=== PATIENT | male | born 1960 | race Caucasian/White ===

== ENCOUNTER 2018-09-30 05:32 | Inpatient (IN) | payer OTHER, SELFPAY ==
[2018-09-18 13:24] VITALS: BMI 26.6
[2018-09-30] VITALS (21 sets, daily range): BP systolic 103–132; BP diastolic 61–86; PULSE 70–102; RESP 6–18; TEMP 36.2–36.8; O2SAT 88–100; BMI 26.6
--- NOTE | 2018-09-30 | DI.RAD.S_ITS ---
PROCEDURE: XR LUMBAR SPINE 2-3V INDICATIONS: L3-4, L4-5 TLIF, L3-S1 POSTERIOR FUSION TECHNIQUE: Multiple intraoperative fluoroscopic views of the lumbar spine were acquired. COMPARISON: None. FINDINGS: Bones: Intraoperative fluoroscopic spot images demonstrate posterior fixation from L3-S1 and anterior fusion and discectomy at L5-S1. IMPRESSION: Intraoperative fluoroscopic images demonstrating fusion at the lumbosacral region. Dictated by: Molly Lozano M.D. on 09/30/2018 at 12:58 Approved by: Molly Lozano M.D. on 09/30/2018 at 12:59
[2018-09-30] MEDS: LACTATED RINGERS 1,000 ML 42 ML IV ×3 (06:43→11:28)
--- NOTE | 2018-09-30 07:41 | PM.PREOP ---
Pre-operative Note Interval Note History & Physical reviewed/Exam performed by Physician: Yes Changes to H&P: No
[2018-09-30] MEDS: CEFAZOLIN 2 GM/100 ML FROZ.PIGGY IV (07:55)
--- NOTE | 2018-09-30 08:25 | SUR.OPER ---
Prone on spine table, head in foam head support, padded chest and pelvic supports, gel pad at knees, lower legs supported by pillows; nipples, genitalia and toes free of pressure, arms secured on foam padded arm boards at <90 degrees abduction. Tape over blanket at thigh secured to table.
[2018-09-30] MEDS: ACETAMINOPHEN IV 1,000 MG/100 ML VIAL 400 MG IV (08:34)
[2018-09-30] MEDS: BUPIVACAINE LIPOSOME 266 MG/20 ML VIAL INJ (08:45)
[2018-09-30] MEDS: BUPIVACAINE 0.25% W/ EPI VIAL 30 ML INJ (08:45)
--- NOTE | 2018-09-30 08:51 | CM.DANOTE ---
DCP: Case received, EMR reviewed. Information obtained from , Annalee, via phone call. White board updated in patient's room, he is now in surgery. DCP template completed with information currently available. Patient is a 58 year old male who admitted early this morning to the care of the surgical team. PCP: Dr. Griffith. Payer: confirmed: [employer]. Patient came to hospital via family vehicle for surgical procedure. Patient is having L3-4, L4-5, L3-S1 fusion. Patient has history of Osteoarthritis, as well as Lumbar Stenosis. Spoke to , Annalee. Her phone number is: [phone], regarding patient's baseline at home. She stated that he is independent, has been going to the gym weekly to work out. She stated that he has had this chronic back pain, that radiates to hip. She stated that when he sits for prolonged time, his left hip gives out at times. She stated that this was mentioned to the surgeon. She stated that he is borrowing his mother's walker and cane, for he does not normally use any DME supplies. Patient has been independent, drives. Patient has had back surgery in 2008 as well. P: DCP to continue to follow. Patient should be able to return home, will depend on how he does here in hospital with physical therapy as well. Jennifer Hoyos RN/[employer]
--- NOTE | 2018-09-30 12:24 | P.OP_ITS ---
Operative Date/Time/Diagnoses Date of procedure: 09/30/18 Time of procedure: 08:00 Pre-op diagnosis: 1. L3-4, L4-5, L5-S1 spinal stenosis. 2. Hx of L5-S1 fusion with pseudoarthrosis. 3. L3-4, L4-5, L5-S1 spondylosis with radiculopathy Post-op diagnosis: same Procedure & Clinicians Procedure: 1. L3-4, L4-5 Postero-lateral and posterior interbody fusion 2. L5-S1 posterolateral fusion 3. L3-4, L4-5 interbody cage placement. 4. L3-4, L4-5, L5-S1 decompressive laminectomy with bilateral facetecomies 5. L3-4, L4-5, L5-S1 Posterior segmental instrumentation 6. Pansey of bone marrow from iliac crest 7. Utilization of microsurgical technique and operating microscope Same procedure as scheduled: Yes Indications: Patient has been having chronic back pain and worsening lumbar radiculopathy. Patient had a history of lumbar fusion with progressively worsening pain weakness to his left leg. Patient failed multiple conservative management with worsening pain weakness and numbness in her lower extremity. Patient has been having difficulty performing activity of daily living. After discussing risks benefits of treatment options, patient elected proceed with surgery. Surgeon: Bill Wadsworth [employer] Professor: Dionna Staton'Brien Click Yes if Unassisted: No Anesthesia Type: General Operative Notes Closure Type: primary Specimen(s): none sent Applied: catheter Estimated Blood Loss (mL): 200 Blood products transfused: none Procedure in detail: Patient was seen in the preoperative area. Risks and benefits of the surgery was discussed with the patient. Informed consent was obtained from the patient and placed in the chart. Surgical site was marked. Patient was taken to the operative room. General anesthesia was administered. Prophylactic antibiotic was given to the patient less than 30 min before the incision was made. Patient was placed into a prone position on the Brent table. Patient's back was then prepped and draped in the sterile fashion. Time- out was performed at this time. Using AP and lateral C-arm imaging the interval between L3-S1 was identified and marked on patient's back. A 3 inch incision 2 in from midline was made on the left side first. The fascia was incised in line with skin incision. Globus MARS retractors was placed inside the incision and docked onto the L3, L4 and L5 lamina. Using microsurgical technique and operating microscope, a L3, L4 and L5 laminectomy and L3-4, L4-5 L5-S1 facetectomy was performed using a Kerrison rongeur. During the process of laminectomy at L5-S1 level the fusion mass was inspected. There was visible motion with stressing the fusion mass indicating a pseudoarthrosis at L5-S1 level. The disc space at L3-4, L4-5 was identified. And a total diskectomy was performed at L3-4, L4-5 level. The endplates were decorticated using a rasp and shaver. The total diskectomy and decortication was performed at L3-4, L4-5 level in order to to accomplish a L3-4 , L4-5 interbody fusion. The local bone from the laminectomy and facetectomy was saved for local bone grafting. After the total diskectomy and decortication was completed, Globus viacell bone graft material was combined with local bone that was harvested earlier. At this time, a separate skin is incision was made over the iliac crest. A Jamshidi needle was inserted into the iliac crest through a separate skin incision. 5 cc of bone marrow aspiration was obtained through the separate skin incision using a Jamshidi needle from the iliac crest. The bone marrow aspiration was combined with local bone and the bio4 bone grafting material. The bone grafting material was placed into the L3-4, L4-5 interbody space along with two cages, one expandable cage at each level. The cages were expanded to their maximum height using the torque limiting screwdriver. At this time a mirror image incision was made on the right side. The fascia was incised in line with the skin incision. Globus MARS retractor was inserted and docked onto the L3-4, L4-5, L5-S1 posterolateral gutter. Using the power drill , posterior-lateral decortication was performed at L3-4, L4-5, L5-S1 level until bleeding cortical bone was identified. The remaining bone grafting material was placed into the L3-4, L4-5 L5-S1 posterior lateral gutter he order to accomplish posterolateral fusion at the L3-4, L4-5 L5-S1 levels. Using the double C-arm technique, pedicle screws were placed into the L3, L4, L5 , S1 pedicles bilaterally. This was done by placing the Jamshidi needle into the pedicles, then placing the guidewires over the Jamshidi needle, and finally placing the cannulated screws over the guidewires bilaterally. After the pedicle screws were placed, 2 titanium rods was locked into the heads of the pedicle screws using locking caps and torque limiting screwdriver. Total 8 pedicles screws were placed. During processes of the screw placement patient's previous placed hardware was visualized. Care was taken to not have any interference between the newly placed screws and the previously placed hardware at L5-S1 level. After all the hardware was placed, and confirmed with AP and lateral C-arm imaging, the wound was then irrigated with sterile normal saline and packed with Ray-Cynthia gauze for 3 min to accomplish hemostasis. After the gauze was removed the deep fascia was closed with #1 Vicryl suture. The subcutaneous layer was closed with 2-0 Vicryl. The skin was closed with skin alessandro. Neuromonitoring was used during the entire case. Patient's signal was stable throughout the entire case. Patient tolerated the procedure well. There were no complications. Complications: none Condition: stable Disposition: PACU Plan for aftercare: Admit to inpatient hospital
[2018-09-30] MEDS: HYDROMORPHONE 2 MG INJ 0.5 MG IV ×3 (12:32→13:11)
[2018-09-30] MEDS: LORazepam 2 MG/ML SYRINGE 0.5 MG IV (12:50)
[2018-09-30] MEDS: hydrOXYzine 50 MG/ML INJ 25 MG IM (13:17)
--- NOTE | 2018-09-30 14:48 | SUR.PHASEI ---
Patient stable to transfer. Dozes intermiitenttly. O2 sats stable on 2/L DIRECTOR ADVERTISING. at bedside. Bedside report given to Daisy Bajwa. patient complained of pain at time of arrival 02/10.
[2018-09-30] MEDS: SODIUM CHLORIDE 0.9% 1,000 ML 100 ML IV (14:50)
--- NOTE | 2018-09-30 15:48 | PC.NURSE ---
Post op: Arrived to room 225 at 1430. Drowsy, but awakens easily to voice/touch. RR 10-12/min. On 2L O2, sats mid to upper 90's. Continuous pulse ox in place. Reported back pain 5/10 was tolerable. Assisted to reposition onto his R side with ice packs on his back. Dressing to mid low back C/D/I. Denies paresthesias. Corley to gravity. IVF per order, site in L wrist WNL. Denies nausea, provided with ice chips and water. SCD's placed on BLE's. Oriented to room and call light, encouraged to make needs known. Call light in reach, bed alarm active.
[2018-09-30] MEDS: CEFAZOLIN 1 GM/50 ML FROZ.PIGGY IV (16:16)
[2018-09-30] MEDS: ACETAMINOPHEN 325 MG TABLET 650 MG PO (16:17)
[2018-09-30] MEDS: HYDROMORPHONE 1 MG INJ 0.5 MG IV ×2 (16:30→21:37)
--- NOTE | 2018-09-30 17:08 | PT.IPTN ---
Current Diagnoses Other spondylosis with radiculopathy, lumbar region (09/30/18) Spinal stenosis, lumbar region with neurogenic claudication (09/30/18) Surgery Performed Operation Date: 09/30/18 07:45 Actual Procedures p L3-4,L4-5 TLIF, L3-S1 PSF w/Instru, L2-3 Hemilaminectomy - Bill Wadsworth MD Physical Therapy Treatment Note M3 PT-IP Subjective Start: 09/30/18 17:05 Freq: NEEDED Status: Active Protocol: Document 09/30/18 16:50 (Rec: 09/30/18 17:07 [id number]) Subjective Physical Therapy Visit Type Type Administrative Note Visit Start Time 16:50 Notes RN recommended attempt PT again tomorrow due to LBP -. Pt states I am very tired at this point and my back is bothering me.
[2018-09-30] MEDS: DOCUSATE 100 MG CAPSULE PO (20:03)
[2018-09-30] MEDS: SENNOSIDES 8.6 MG TABLET 17.2 MG PO (20:03)
[2018-09-30] MEDS: hydrOXYzine pamoate 25 MG CAPSULE PO (20:03)
[2018-09-30] MEDS: OXYCODONE IR 5 MG TABLET 10 MG PO (20:03)
[2018-10-01 00:30] VITALS: BP 118/73; PULSE 82; RESP 17; TEMP 36.6; O2SAT 100
[2018-10-01] MEDS: SODIUM CHLORIDE 0.9% 1,000 ML 100 ML IV (00:39)
[2018-10-01] MEDS: CEFAZOLIN 1 GM/50 ML FROZ.PIGGY IV (00:39)
[2018-10-01] MEDS: OXYCODONE IR 5 MG TABLET 10 MG PO ×3 (00:43→06:35)
[2018-10-01 04:00] VITALS: BP 117/65; PULSE 76; RESP 17; O2SAT 96
[2018-10-01] MEDS: HYDROMORPHONE 1 MG INJ 0.5 MG IV (04:21)
[2018-10-01 05:21] LABS: Hemoglobin 13.5 g/dL (13.5-17.5)
[2018-10-01 06:10] VITALS: TEMP 37.1
[2018-10-01] MEDS: hydrOXYzine pamoate 25 MG CAPSULE PO ×4 (06:44→22:22)
[2018-10-01 07:50] VITALS: BP 104/72; PULSE 98; RESP 18; TEMP 37; O2SAT 98
--- NOTE | 2018-10-01 08:00 | PM.PNPO.1 ---
Subjective Date Patient Seen: 10/01/18 Time Patient Seen: 08:00 Interval history: Hospital day 2, postop day 1 following L3-4, L4-5 TLIF and cage, L5-S1 posterior fusion and L3 through S1 bilateral posterior instrumented fusion by Dr. Wadsworth. Patient noted pain off and on throughout the night. He was taking oxycodone 10 mg which is not giving him enough relief. Did receive 2 doses of IV Dilaudid which helped. Also Vistaril seem to help a lot. He has not been out of bed yet. No physical therapy yet. Corley catheter in place. Exam Vital Signs (past 8 hours): - 10/01/18 00:30 10/01/18 04:00 10/01/18 06:10 Temperature 97.8 F 98.8 F Pulse Rate 82 76 Respiratory Rate 17 17 Blood Pressure 118/73 117/65 Pulse Oximetry 100 96 10/01/18 07:50 Temperature 98.6 F Pulse Rate 98 H Respiratory Rate 18 Blood Pressure 104/72 Pulse Oximetry 98 Oxygen Delivery Method Nasal Cannula Oxygen Flow Rate 1 Narrative Exam Narrative: Alert, oriented no acute distress right lying in bed. Back. Dressing to lumbar area is dry without drainage or inflammation. Legs. No calf pain or swelling. Pulses symmetrical. Good sensation to touch to the lower legs symmetrical. Good strength on foot dorsiflexion plantar flexion. Objective Labs Result Diagrams: 10/01/18 04:47 Labs: Laboratory Results - last 24 hr 10/01/18 04:47 Hgb 13.5 Hct 40.0 L Assessment & Plan Post-op Postoperative Procedures Operation Date: 09/30/18 07:45 Actual Procedures Side Surgeon p L3-4,L4-5 TLIF, L3-S1 PSF w/Instru, L2-3 Hemilaminectomy Bill Wadsworth MD Plan: Will add p.o. Dilaudid for better pain control. Patient work with physical therapy today. DC Corley catheter once he is more active. I anticipate discharge home in the next 1-2 days depending on his progress and pain control. Quality VTE Deep Vein Thrombosis/Pulmonary Embolism Present on Admission: No
[2018-10-01] MEDS: DOCUSATE 100 MG CAPSULE PO ×2 (08:49→22:17)
[2018-10-01] MEDS: HYDROMORPHONE 2 MG TABLET 4 MG PO ×4 (08:50→22:17)
--- NOTE | 2018-10-01 08:56 | CM.DPC ---
DCP Cont: Met briefly with patient, was laying on his right side. Had his lumbar surgery yesterday. He stated that he has had back problems since he was young. He stated, he had a lot of pain last night, not as bad this morning. Received report from Randolph Zacarias P.Davidson/ortho. Stated that he anticipates that he will be here until possibly . He stated that he switched him to oral Dilaudid today, versus IV. He also will be working with P.T. today. P: DCP to follow closely. Should be able to return home when medically stable and cleared through P.T. Jennifer Hoyos RN/[employer]
[2018-10-01] MEDS: HYDROMORPHONE 0.5 MG INJ IV ×2 (09:05→18:22)
--- NOTE | 2018-10-01 10:33 | PT.IIE ---
Current Diagnoses Other spondylosis with radiculopathy, lumbar region (09/30/18) Spinal stenosis, lumbar region with neurogenic claudication (09/30/18) Surgery Performed Operation Date: 09/30/18 07:45 Actual Procedures p L3-4,L4-5 TLIF, L3-S1 PSF w/Instru, L2-3 Hemilaminectomy - Bill Wadsworth MD Surgical History (Last Updated 09/18/18 @ 14:22 by Shahla Farias RN) History of arthroscopy of both shoulders (Acute) Hx of elbow surgery (Acute) Hx of eye surgery (Acute) Hx of hemorrhoidectomy (Acute 09/03/14) Hx of lumbar discectomy (Acute ~2009) Hx of tonsillectomy (Acute) S/P cervical spinal fusion (Acute ~1988) S/P cervical spinal fusion (Acute ~2006) Medical History (Last Updated 09/18/18 @ 14:22 by Shahla Farias RN) Chronic back pain (Acute) Constipation (Acute) Ganglion cyst (Acute) Melanoma in situ of back (Acute ~2014) Neck pain (Acute) Normal colonoscopy (Acute 09/03/07) Pneumonia (Acute) Sciatica (Acute) Physical Therapy Inpatient Evaluation/Re-Eval M1 PT/OT-IP Prior Functional Status Start: 09/30/18 17:05 Freq: NEEDED Status: Active Protocol: Document 10/01/18 10:33 AB (Rec: 10/01/18 13:04 AB [id number]) Medical Review Prior Functional Status Medical History Reviewed Yes Communication able to make needs known Mobility and Gait stated that he is independent with all mobilities and ambulation without AD Social History Household Members spouse Living Arrangements House Number of Floors (Floors) Two Floors Number of Stairs To Enter/Railing? 3 steps to enter with R rail ascending pt will stay on main level of the house Home Environment Standard Height Toilet Walk in Shower Home Equipment Front Wheel Walker Quad Cane M2 PT-IP Current Condition Start: 09/30/18 17:05 Freq: NEEDED Status: Active Protocol: Document 10/01/18 10:33 AB (Rec: 10/01/18 13:04 AB [id number]) Physical Therapy Current Condition Current Condition Evaluation Date 10/01/18 Treatment Diagnosis s/p L3-S1 fusion/lami; difficulties in walking Onset Date 09/30/18 Precautions Lumbar Precautions Log Roll No Twisting Limit Bending Lifting Restriction of 10 lbs Gait Belt above Incisional Area M3 PT-IP Subjective Start: 09/30/18 17:05 Freq: NEEDED Status: Active Protocol: Document 10/01/18 10:33 AB (Rec: 10/01/18 13:04 AB [id number]) Subjective Physical Therapy Visit Type Type Initial Evaluation Visit Start Time 10:33 Visit Stop Time 11:13 Total Visit Minutes 40 Number of SCREENER OPERATOR Visits 0 Physical Therapy Visit Comments Patient Comments pt agreed to get up Therapy Pain Assessment Pain When Pain Assessed At Rest Pain Present Pain Present Pain Reported Location Back Intensity 3 Scale Used Numeric (1 - 10) Pain Management Techniques Apply Cold Re-positioning Timing of Activity with Medications M4 PT-IP Mobility and Gait Start: 09/30/18 17:05 Freq: NEEDED Status: Active Protocol: Document 10/01/18 10:33 AB (Rec: 10/01/18 13:04 AB [id number]) PT-Bed Mobility Assessment Sit to Supine Sit to Supine Moderate Assistance Scooting Scooting to Edge of Bed Standby Assistance PT-Transfer Assessment Sit to and From Stand Sit to and from Stand Moderate Assistance 1 Person Assistance Use of Upper Extremities Equipment Transfer Assistive Device Gait Belt Front Wheeled Walker Orthotic/Prosthetic Devices or Brace: No Transfers Transfer Destination Chair Transfer Technique pt ambulated to the the chair using FWW Transfer Ability Level of Assist Moderate Assistance 1 Person Assistance Use of Upper Extremities Gait Assessment Gait Gait Assistance Required: Minimum Assistance Moderate Assistance Distance (Feet) 50 Able to Maintain Weight Bearing Status Yes During Gait Assistive Devices Assistive Device Gait Belt Front Wheeled Walker Orthotic/Prosthetic Devices or Brace: No Gait Deviations General Gait Pattern Antalgic Decreased Stride Length Decreased Feet Clearance Lateral Trunk Lean Factors Limiting Gait Function Factors Limiting Gait Function Decreased Activity Tolerance Decreased Strength Difficulty Following Directions Limited Range of Motion Pain Poor Balance Poor Safety Awareness Comments Gait Comments pt ambulated in hallway using FWW min to mod A and max cues for upright posture. completed ~ 50 ft. pt presents with increase bilateral hip/knee flexion and increase ankle PF . pt stated that prior to surgery, he spends most of his time seated on a chair for pain relief and psoas muscles are tight. PT-Balance Assessment Sitting Balance and Reactions Static Sitting Balance Ability Good Dynamic Sitting Balance Ability Good Standing Balance and Reactions Static Standing Balance Ability Fair Dynamic Standing Balance Ability Fair Device Used FWw M5 PT-IP Objective Assessments Start: 09/30/18 17:05 Freq: NEEDED Status: Active Protocol: Document 10/01/18 10:33 AB (Rec: 10/01/18 13:04 AB [id number]) Orientation Orientation/Cognition Level of Alertness Alert Orientation Name Age Birthday Month Date Year Day of Week Place Situation Safety Awareness Decreased Safety Awareness Comments pt can be impulsive Gross Range of Motion Lower Extremity ROM Impairments bilateral hip flexors, knee extensors and PF tightness Strength Lower Extremity Strength Assessment Bilaterally Impaired Hip 3+/5 Knee 4-/5 Coordination Assessment Gross Coordination Gross Coordination WNL Muscle Tone Muscle Tone WNL Yes M6 PT-IP Treatment Start: 09/30/18 17:05 Freq: NEEDED Status: Active Protocol: Document 10/01/18 10:33 AB (Rec: 10/01/18 13:04 AB [id number]) Physical Therapy Treatment Education Education Provided Precautions Weight Bearing Status Post-Op Packet Safety M7 PT-IP Assessment and Plan Start: 09/30/18 17:05 Freq: NEEDED Status: Active Protocol: Document 10/01/18 10:33 AB (Rec: 10/01/18 13:04 AB [id number]) PT Summary Assessment and Plan Potential Rehabilitation Potential Good Status of Condition at Evaluation Evolving Summary Impairments Pain ROM Strength Balance Coordination Sensation Tone Cognition Bed Mobility Transfers Gait Activity Tolerance Assessment Summary pt requiring mod A with mobility. pt plans to go home with spouse to assist him. caregiver training will be completed when appropriate and will complete stair climbing prior to d/c and if able to complete safely, may go home with assist. Goals Bed Mobility Goal Standby Assistance Transfer Goal Standby Assistance Front Wheeled Walker Gait Goal Standby Assistance Front Wheel Walker Gait Distance 200 Other Goals up/down 3 steps with R rail SBA Days to Meet Goals 5 Frequency of Treatment Frequency Of Treatment Twice a Day Treatment Plan Physical Therapy Treatment Plan Bed Mobility Training Transfer Training Gait Training Therapeutic Exercise Balance Retraining Post Op Education Discharge Planning Hot or Cold Pack Neuromuscular Re-ed Coordination Retraining Manual Therapy Other Recommendations and Next Treatment bed mobility log roll, Focus caregiver training, ambulation , stair climbing Recommendations To Nursing Amount of Assist Needed 1 Person Assist Discharge Recommendations PT Discharge Recommendations Home with Assistance
[2018-10-01] MEDS: ACETAMINOPHEN 325 MG TABLET 650 MG PO ×2 (10:50→18:22)
[2018-10-01] MEDS: MAGNESIUM HYDROXIDE 30 ML UDC PO (12:06)
[2018-10-01] MEDS: MAG HYDROX/ALUM/SIMETH 30 ML UDC PO (12:36)
--- NOTE | 2018-10-01 15:15 | OT.IP.TRT ---
Current Diagnoses Other spondylosis with radiculopathy, lumbar region (09/30/18) Spinal stenosis, lumbar region with neurogenic claudication (09/30/18) Surgery Performed Operation Date: 09/30/18 07:45 Actual Procedures p L3-4,L4-5 TLIF, L3-S1 PSF w/Instru, L2-3 Hemilaminectomy - Bill Wadsworth MD Occupational Therapy Treatment Note M3 OT- IP Subjective and Pain Start: 10/01/18 16:28 Freq: Status: Active Protocol: Document 10/01/18 15:15 PJM (Rec: 10/01/18 16:29 PJM [id number]) OT- Subjective Occupational Therapy Visit Type Type Administrative Note Visit Start Time 15:15 Notes OT referral received. Pt declined evaluation at this time due to abdominal discomfort. Will attempt again in AM. No charge.
[2018-10-01 15:40] VITALS: BP 100/76; PULSE 88; RESP 16; TEMP 37; O2SAT 98
--- NOTE | 2018-10-01 15:44 | PT.IPTN ---
Current Diagnoses Other spondylosis with radiculopathy, lumbar region (09/30/18) Spinal stenosis, lumbar region with neurogenic claudication (09/30/18) Surgery Performed Operation Date: 09/30/18 07:45 Actual Procedures p L3-4,L4-5 TLIF, L3-S1 PSF w/Instru, L2-3 Hemilaminectomy - Bill Wadsworth MD Physical Therapy Treatment Note M2 PT-IP Current Condition Start: 09/30/18 17:05 Freq: NEEDED Status: Active Protocol: Document 10/01/18 10:33 AB (Rec: 10/01/18 13:04 AB [id number]) Physical Therapy Current Condition Current Condition Evaluation Date 10/01/18 Treatment Diagnosis s/p L3-S1 fusion/lami; difficulties in walking Onset Date 09/30/18 Precautions Lumbar Precautions Log Roll No Twisting Limit Bending Lifting Restriction of 10 lbs Gait Belt above Incisional Area M3 PT-IP Subjective Start: 09/30/18 17:05 Freq: NEEDED Status: Active Protocol: Document 10/01/18 14:10 CLB (Rec: 10/01/18 15:43 CLB [id number]) Subjective Physical Therapy Visit Type Type Treatment Note Visit Start Time 14:10 Visit Stop Time 14:35 Total Visit Minutes 25 Number of GRADES 1 THRU 6 HOME TEACHER Visits 1 Physical Therapy Visit Comments Patient Comments Pt wanting to get up and ambulate hoping to decrease stomach pain. Therapy Pain Assessment Pain When Pain Assessed During Mobility Pain Present Pain Present Pain Reported Location Back Intensity 5 Scale Used Numeric (1 - 10) Pain Management Techniques Apply Cold Re-positioning Timing of Activity with Medications M4 PT-IP Mobility and Gait Start: 09/30/18 17:05 Freq: NEEDED Status: Active Protocol: Document 10/01/18 14:10 CLB (Rec: 10/01/18 15:43 CLB [id number]) PT-Transfer Assessment Sit to and From Stand Sit to and from Stand Minimal Assistance 1 Person Assistance Use of Upper Extremities Equipment Transfer Assistive Device Gait Belt Front Wheeled Walker Orthotic/Prosthetic Devices or Brace: No Transfers Transfer Destination Chair Transfer Technique Stand Step Pivot Transfer Ability Level of Assist Minimal Assistance 1 Person Assistance Use of Upper Extremities Gait Assessment Gait Gait Assistance Required: Contact Guard Assist 1 Person Assist Distance (Feet) 100 Able to Maintain Weight Bearing Status Yes During Gait Assistive Devices Assistive Device Gait Belt Front Wheeled Walker Orthotic/Prosthetic Devices or Brace: No Gait Deviations General Gait Pattern Antalgic Decreased Stride Length Decreased Feet Clearance Lateral Trunk Lean Comments Gait Comments Pt increased ambulation requiring CGA with standing rest breaks. M5 PT-IP Objective Assessments Start: 09/30/18 17:05 Freq: NEEDED Status: Active Protocol: Document 10/01/18 10:33 AB (Rec: 10/01/18 13:04 AB [id number]) Orientation Orientation/Cognition Level of Alertness Alert Orientation Name Age Birthday Month Date Year Day of Week Place Situation Safety Awareness Decreased Safety Awareness Comments pt can be impulsive Gross Range of Motion Lower Extremity ROM Impairments bilateral hip flexors, knee extensors and PF tightness Strength Lower Extremity Strength Assessment Bilaterally Impaired Hip 3+/5 Knee 4-/5 Coordination Assessment Gross Coordination Gross Coordination WNL Muscle Tone Muscle Tone WNL Yes M6 PT-IP Treatment Start: 09/30/18 17:05 Freq: NEEDED Status: Active Protocol: Document 10/01/18 10:33 AB (Rec: 10/01/18 13:04 AB [id number]) Physical Therapy Treatment Education Education Provided Precautions Weight Bearing Status Post-Op Packet Safety M7 PT-IP Assessment and Plan Start: 09/30/18 17:05 Freq: NEEDED Status: Active Protocol: Document 10/01/18 14:10 CLB (Rec: 10/01/18 15:43 CLB [id number]) PT Summary Assessment and Plan Summary Impairments Pain ROM Strength Balance Coordination Sensation Tone Cognition Bed Mobility Transfers Gait Activity Tolerance Assessment Summary Pt increased gait distance requiring standing rest breaks . Pt continues to need cues for posture during ambulation. Pt improved with sit-stand requiring Min A and cues for proper hand placement for safety. and daughter present for tx session. Goals Bed Mobility Goal Standby Assistance Transfer Goal Standby Assistance Front Wheeled Walker Gait Goal Standby Assistance Front Wheel Walker Gait Distance 200 Other Goals up/down 3 steps with R rail SBA Days to Meet Goals 5 Frequency of Treatment Frequency Of Treatment Twice a Day Treatment Plan Physical Therapy Treatment Plan Bed Mobility Training Transfer Training Gait Training Therapeutic Exercise Balance Retraining Post Op Education Discharge Planning Hot or Cold Pack Neuromuscular Re-ed Coordination Retraining Manual Therapy Recommendations To Nursing Amount of Assist Needed 1 Person Assist Discharge Recommendations PT Discharge Recommendations Home with Assistance
--- NOTE | 2018-10-01 15:46 | PT.IPTN ---
Current Diagnoses Other spondylosis with radiculopathy, lumbar region (09/30/18) Spinal stenosis, lumbar region with neurogenic claudication (09/30/18) Surgery Performed Operation Date: 09/30/18 07:45 Actual Procedures p L3-4,L4-5 TLIF, L3-S1 PSF w/Instru, L2-3 Hemilaminectomy - Bill Wadsworth MD Physical Therapy Treatment Note M2 PT-IP Current Condition Start: 09/30/18 17:05 Freq: NEEDED Status: Active Protocol: Document 10/01/18 10:33 AB (Rec: 10/01/18 13:04 AB [id number]) Physical Therapy Current Condition Current Condition Evaluation Date 10/01/18 Treatment Diagnosis s/p L3-S1 fusion/lami; difficulties in walking Onset Date 09/30/18 Precautions Lumbar Precautions Log Roll No Twisting Limit Bending Lifting Restriction of 10 lbs Gait Belt above Incisional Area M3 PT-IP Subjective Start: 09/30/18 17:05 Freq: NEEDED Status: Active Protocol: Document 10/01/18 14:10 CLB (Rec: 10/01/18 15:43 CLB [id number]) Subjective Physical Therapy Visit Type Type Treatment Note Visit Start Time 14:10 Visit Stop Time 14:35 Total Visit Minutes 25 Number of FOOD RUNNER Visits 1 Physical Therapy Visit Comments Patient Comments Pt wanting to get up and ambulate hoping to decrease stomach pain. Therapy Pain Assessment Pain When Pain Assessed During Mobility Pain Present Pain Present Pain Reported Location Back Intensity 5 Scale Used Numeric (1 - 10) Pain Management Techniques Apply Cold Re-positioning Timing of Activity with Medications M4 PT-IP Mobility and Gait Start: 09/30/18 17:05 Freq: NEEDED Status: Active Protocol: Document 10/01/18 14:10 CLB (Rec: 10/01/18 15:43 CLB [id number]) PT-Transfer Assessment Sit to and From Stand Sit to and from Stand Minimal Assistance 1 Person Assistance Use of Upper Extremities Equipment Transfer Assistive Device Gait Belt Front Wheeled Walker Orthotic/Prosthetic Devices or Brace: No Transfers Transfer Destination Chair Transfer Technique Stand Step Pivot Transfer Ability Level of Assist Minimal Assistance 1 Person Assistance Use of Upper Extremities Gait Assessment Gait Gait Assistance Required: Contact Guard Assist 1 Person Assist Distance (Feet) 100 Able to Maintain Weight Bearing Status Yes During Gait Assistive Devices Assistive Device Gait Belt Front Wheeled Walker Orthotic/Prosthetic Devices or Brace: No Gait Deviations General Gait Pattern Antalgic Decreased Stride Length Decreased Feet Clearance Lateral Trunk Lean Comments Gait Comments Pt increased ambulation requiring CGA with standing rest breaks. M5 PT-IP Objective Assessments Start: 09/30/18 17:05 Freq: NEEDED Status: Active Protocol: Document 10/01/18 10:33 AB (Rec: 10/01/18 13:04 AB [id number]) Orientation Orientation/Cognition Level of Alertness Alert Orientation Name Age Birthday Month Date Year Day of Week Place Situation Safety Awareness Decreased Safety Awareness Comments pt can be impulsive Gross Range of Motion Lower Extremity ROM Impairments bilateral hip flexors, knee extensors and PF tightness Strength Lower Extremity Strength Assessment Bilaterally Impaired Hip 3+/5 Knee 4-/5 Coordination Assessment Gross Coordination Gross Coordination WNL Muscle Tone Muscle Tone WNL Yes M6 PT-IP Treatment Start: 09/30/18 17:05 Freq: NEEDED Status: Active Protocol: Document 10/01/18 10:33 AB (Rec: 10/01/18 13:04 AB [id number]) Physical Therapy Treatment Education Education Provided Precautions Weight Bearing Status Post-Op Packet Safety M7 PT-IP Assessment and Plan Start: 09/30/18 17:05 Freq: NEEDED Status: Active Protocol: Document 10/01/18 14:10 CLB (Rec: 10/01/18 15:43 CLB [id number]) PT Summary Assessment and Plan Summary Impairments Pain ROM Strength Balance Coordination Sensation Tone Cognition Bed Mobility Transfers Gait Activity Tolerance Assessment Summary Pt increased gait distance requiring standing rest breaks . Pt continues to need cues for posture during ambulation. Pt improved with sit-stand requiring Min A and cues for proper hand placement for safety. and daughter present for tx session. Goals Bed Mobility Goal Standby Assistance Transfer Goal Standby Assistance Front Wheeled Walker Gait Goal Standby Assistance Front Wheel Walker Gait Distance 200 Other Goals up/down 3 steps with R rail SBA Days to Meet Goals 5 Frequency of Treatment Frequency Of Treatment Twice a Day Treatment Plan Physical Therapy Treatment Plan Bed Mobility Training Transfer Training Gait Training Therapeutic Exercise Balance Retraining Post Op Education Discharge Planning Hot or Cold Pack Neuromuscular Re-ed Coordination Retraining Manual Therapy Recommendations To Nursing Amount of Assist Needed 1 Person Assist Discharge Recommendations PT Discharge Recommendations Home with Assistance
--- NOTE | 2018-10-01 19:45 | PC.NURSE ---
Addendum entered by Shalini Lackey R.N. 10/01/18 19:49: Changed bed from Hill-Rom to [place] bed and added overhead trapeze. Original Note: malia note pt reported 5-6/10 pain. Medicated with po dilaudid. Pt having much abd discomfort, bloating, belching, some flatus. Pt ambulated in halls with FWW and one person assist. Pain now 9/10. Medicated with IV dilaudid and po tylenol.
[2018-10-01 20:39] VITALS: BP 115/71; PULSE 76; RESP 18; TEMP 37.2
[2018-10-01] MEDS: SENNOSIDES 8.6 MG TABLET 17.2 MG PO (22:17)
[2018-10-02 00:05] VITALS: BP 108/69; PULSE 77; RESP 18; TEMP 36.9; O2SAT 96
[2018-10-02] MEDS: HYDROMORPHONE 0.5 MG INJ IV ×3 (00:19→08:48)
[2018-10-02] MEDS: HYDROMORPHONE 2 MG TABLET 4 MG PO ×4 (02:50→22:52)
[2018-10-02] MEDS: hydrOXYzine pamoate 25 MG CAPSULE PO ×2 (02:50→06:48)
[2018-10-02 04:13] VITALS: BP 106/60; PULSE 84; RESP 19; TEMP 37.1; O2SAT 97
--- NOTE | 2018-10-02 04:27 | PC.NURSE ---
Shift note: Pt reports still having difficulty managing pain with current dosing regimen of 4mg Dilaudid PO and requiring 0.5mg Dilaudid IV for break through pain per MAR. Pt reports that he is unable to sleep and is concerned that he is still requiring the IV Dilaudid to be comfortable. Educated pt on post op course and encouraged pt to speak to surgeon regarding pain management concerns. is rooming in and assisting pt with urination needs, she reports U/O to BAR ATTENDANT for documentation.
[2018-10-02 07:38] VITALS: BP 124/76; PULSE 82; RESP 18; TEMP 37.7; O2SAT 96
--- NOTE | 2018-10-02 08:10 | P.PN_ITS ---
Subjective Date Patient Seen: 10/02/18 Time Patient Seen: 08:06 Interval history: Hospital day 3, postop day 2 following L3-4 through L5-S1 TLIF , cage, posterior screw fixation. Patient continues having pain control issue. He has been taking Dilaudid 4 mg p.o. which works better but still having use occasional IV Dilaudid. The patient did work with physical therapy yesterday. He did ambulate in the [facility] but had increased pain at the end of this session. Voiding well. Exam Vital Signs (past 8 hours): - 10/02/18 04:13 Temperature 98.7 F Pulse Rate 84 Respiratory Rate 19 Blood Pressure 106/60 Pulse Oximetry 97 Oxygen Delivery Method Room Air Oxygen Flow Rate 0 Narrative Exam Narrative: Alert, oriented no acute distress sitting in chair. Back. Dressing to lumbar area is dry without drainage or inflammation. Legs. No calf pain or swelling. Pulses symmetrical. Good sensation to touch to the lower leg symmetrical. Good strength on ankle dorsiflexion plantar flexion. Objective Labs Result Diagrams: 10/01/18 04:47 Assessment & Plan Post-op Postoperative Procedures Operation Date: 09/30/18 07:45 Actual Procedures Side Surgeon p L3-4,L4-5 TLIF, L3-S1 PSF w/Instru, L2-3 Hemilaminectomy Bill Wadsworth MD Plan: Will add dexamethasone 10 mg IV now and then dexamethasone 4 mg p.o. q.8h. Toradol 30 mg IV q.6h as needed to see if this gives him better pain control. Will change lumbar dressing to CovRsite. Patient will work with PT more today. Anticipate discharge to home in the next 1-2 days if stable. Quality VTE Deep Vein Thrombosis/Pulmonary Embolism Present on Admission: No
[2018-10-02] MEDS: DEXAMETHASONE 10 MG/ML VIAL IV (08:46)
[2018-10-02] MEDS: KETOROLAC 30 MG/ML VIAL IV (08:46)
[2018-10-02] MEDS: DOCUSATE 100 MG CAPSULE PO (08:49)
--- NOTE | 2018-10-02 09:30 | PT.IPTN ---
Current Diagnoses Other spondylosis with radiculopathy, lumbar region (09/30/18) Spinal stenosis, lumbar region with neurogenic claudication (09/30/18) Surgery Performed Operation Date: 09/30/18 07:45 Actual Procedures p L3-4,L4-5 TLIF, L3-S1 PSF w/Instru, L2-3 Hemilaminectomy - Bill Wadsworth MD Physical Therapy Treatment Note M2 PT-IP Current Condition Start: 09/30/18 17:05 Freq: NEEDED Status: Active Protocol: Document 10/01/18 10:33 AB (Rec: 10/01/18 13:04 AB [id number]) Physical Therapy Current Condition Current Condition Evaluation Date 10/01/18 Treatment Diagnosis s/p L3-S1 fusion/lami; difficulties in walking Onset Date 09/30/18 Precautions Lumbar Precautions Log Roll No Twisting Limit Bending Lifting Restriction of 10 lbs Gait Belt above Incisional Area M3 PT-IP Subjective Start: 09/30/18 17:05 Freq: NEEDED Status: Active Protocol: Document 10/02/18 09:30 GGD (Rec: 10/02/18 11:56 GGD [id number]) Subjective Physical Therapy Visit Type Type Treatment Note Visit Start Time 09:00 Visit Stop Time 09:30 Total Visit Minutes 30 Number of METAL FITTER Visits 2 Physical Therapy Visit Comments Patient Comments Pt states he would like to walk. Therapy Pain Assessment Pain When Pain Assessed During Mobility Pain Present Pain Present Pain Reported M4 PT-IP Mobility and Gait Start: 09/30/18 17:05 Freq: NEEDED Status: Active Protocol: Document 10/02/18 09:30 GGD (Rec: 10/02/18 11:56 GGD [id number]) PT-Bed Mobility Assessment Sit to Supine Sit to Supine Contact Guard Assistance Bedrails Scooting Scooting to Edge of Bed Standby Assistance PT-Transfer Assessment Sit to and From Stand Sit to and from Stand Contact Guard Assistance 1 Person Assistance Use of Upper Extremities Equipment Transfer Assistive Device Gait Belt Front Wheeled Walker Orthotic/Prosthetic Devices or Brace: No Transfers Transfer Destination Bed Transfer Ability Level of Assist Minimal Assistance Use of Upper Extremities Gait Assessment Gait Gait Assistance Required: Contact Guard Assist 1 Person Assist Distance (Feet) 140 Able to Maintain Weight Bearing Status Yes During Gait Assistive Devices Assistive Device Gait Belt Front Wheeled Walker Orthotic/Prosthetic Devices or Brace: No Gait Deviations General Gait Pattern Antalgic Decreased Stride Length Decreased Feet Clearance Lateral Trunk Lean M5 PT-IP Objective Assessments Start: 09/30/18 17:05 Freq: NEEDED Status: Active Protocol: Document 10/01/18 10:33 AB (Rec: 10/01/18 13:04 AB [id number]) Orientation Orientation/Cognition Level of Alertness Alert Orientation Name Age Birthday Month Date Year Day of Week Place Situation Safety Awareness Decreased Safety Awareness Comments pt can be impulsive Gross Range of Motion Lower Extremity ROM Impairments bilateral hip flexors, knee extensors and PF tightness Strength Lower Extremity Strength Assessment Bilaterally Impaired Hip 3+/5 Knee 4-/5 Coordination Assessment Gross Coordination Gross Coordination WNL Muscle Tone Muscle Tone WNL Yes M6 PT-IP Treatment Start: 09/30/18 17:05 Freq: NEEDED Status: Active Protocol: Document 10/02/18 09:30 GGD (Rec: 10/02/18 11:56 GGD [id number]) Physical Therapy Treatment Education Education Provided Precautions M7 PT-IP Assessment and Plan Start: 09/30/18 17:05 Freq: NEEDED Status: Active Protocol: Document 10/02/18 09:30 GGD (Rec: 10/02/18 11:56 GGD [id number]) PT Summary Assessment and Plan Summary Assessment Summary Pt improving with mobility. He needed less assist with bed mobility and sit to stand. He did have heavy use of UE on FWW with ambulation. Need to asses stairs, before D/C. Frequency of Treatment Frequency Of Treatment Twice a Day Treatment Plan Physical Therapy Treatment Plan Bed Mobility Training Transfer Training Gait Training Therapeutic Exercise Balance Retraining Post Op Education Discharge Planning Hot or Cold Pack Neuromuscular Re-ed Coordination Retraining Manual Therapy Recommendations To Nursing Amount of Assist Needed 1 Person Assist Discharge Recommendations PT Discharge Recommendations Home with Assistance
--- NOTE | 2018-10-02 11:43 | OT.IP.EVAL ---
Current Diagnoses Other spondylosis with radiculopathy, lumbar region (09/30/18) Spinal stenosis, lumbar region with neurogenic claudication (09/30/18) Surgery Performed Operation Date: 09/30/18 07:45 Actual Procedures p L3-4,L4-5 TLIF, L3-S1 PSF w/Instru, L2-3 Hemilaminectomy - Bill Wadsworth MD Past Medical History (Last Updated 09/18/18 @ 14:22 by Shahla Farias RN) Chronic back pain (Acute) Constipation (Acute) Ganglion cyst (Acute) Melanoma in situ of back (Acute ~2014) Neck pain (Acute) Normal colonoscopy (Acute 09/03/07) Pneumonia (Acute) Sciatica (Acute) Surgical History (Last Updated 09/18/18 @ 14:22 by Shahla Farias RN) History of arthroscopy of both shoulders (Acute) Hx of elbow surgery (Acute) Hx of eye surgery (Acute) Hx of hemorrhoidectomy (Acute 09/03/14) Hx of lumbar discectomy (Acute ~2009) Hx of tonsillectomy (Acute) S/P cervical spinal fusion (Acute ~1988) S/P cervical spinal fusion (Acute ~2006) Occupational Therapy Inpatient Evaluation/Re-Eval M1 PT/OT-IP Prior Functional Status Start: 09/30/18 17:05 Freq: NEEDED Status: Active Protocol: Document 10/02/18 11:43 BREE (Rec: 10/02/18 16:06 BREE [id number]) Medical Review Prior Functional Status Medical History Reviewed Yes Diet/Fluid Consistency Regular Communication WNL Mobility and Gait Pt stated that he is independent with all mobilities and ambulation without AD. Activities of Daily Living and IADL's Pt stated he occasionally needed assistance with socks and shoes when back pain increased; otherwise he ws independent with all self care and light IADLS. 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 Pt's adult daughter lives with them, works partner manager and can assist also. Social History Household Members spouse children Living Arrangements House Number of Floors (Floors) Two Floors Number of Stairs To Enter/Railing? 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 M2 OT-IP Current Condition Start: 10/01/18 16:28 Freq: Status: Active Protocol: Document 10/02/18 11:43 PJM (Rec: 10/02/18 16:06 PJ [id number]) Occupational Therapy Current Condition Current Condition Evaluation Date 10/02/18 Treatment Diagnosis decreased self care, functional mobility s/p L3-L5 PLIF. Post Operative Precautions Lumbar Precautions Log Roll No Twisting Limit Bending Lifting Restriction of 10 lbs Gait Belt above Incisional Area M3 OT- IP Subjective and Pain Start: 10/01/18 16:28 Freq: Status: Active Protocol: Document 10/02/18 11:43 PJM (Rec: 10/02/18 16:06 PJM [id number]) OT- Subjective Occupational Therapy Visit Type Type Initial Evaluation Visit Start Time 11:00 Visit Stop Time 11:43 Total Visit Minutes 43 Notes Pt's here for education this session. Occupational Therapy Visit Comments Patient Comments I am feeling much better today. Patient/Caregiver Goals to go home tomorrow and have less pain during daily activities OT Pain Assessment Pain When Pain Assessed After Treatment Pain Present Pain Present Pain Reported Location Back Intensity 2 Scale Used Numeric (1 - 10) Description Aching Acute Pain Behaviors Guarding Management Techniques Apply Cold Distraction Re-positioning Timing of Activity with Medications M4 OT- IP ADL's Start: 10/01/18 16:28 Freq: Status: Active Protocol: Document 10/02/18 11:43 PJM (Rec: 10/02/18 16:06 PJ [id number]) OT [id number] General Evaluation Self-Feeding Ability Independent OT ADL-Grooming General Evaluation Grooming Ability Independent Comments OT Grooming Comments standing at sink after education re: body mechanics OT ADL-Oral Care General Eval Oral Care Ability Independent Comments Oral Care Comments standing at sink after education re: body mechanics OT ADL-Dressing General Eval Upper Body Dressing Ability Independent Lower Body Dressing Ability Standby Assistance Areas Needing Assistance Pull-Over Shirt Underpants/Brief Pants/Shorts Socks Assistive Devices Dressing Assistive Devices Soliciting Freight Agent Sock Aid Comments OT Dressing Comments Pt educated re: adapted techniques for lower body dressing. Pt has penal officer; will order sock aid on line. Pt will wear slip on shoes. OT ADL-Toileting General Evaluation Toileting Ability Independent OT ADL-Bathing Bathing Type Bathing Type Shower General Evaluation Bathing Ability Minimal Assistance Areas Needing Assistance Wash/Dry Back Devices Bathing Equipment Long Handled Sponge or Disability Liaison Officer Held Shower Sprayer Comments OT Bathing Comments Pt used penal officer with towel to dry lower legs and feet. can assist PRN at home. Pt declines shower seat and stood to shower this session. will obtain long bath sponge for pt M5 OT- IP IADL's Start: 10/01/18 16:28 Freq: Status: Active Protocol: Document 10/02/18 11:43 PJM (Rec: 10/02/18 16:06 PJ [id number]) OT-Instrumental Activities of Daily Living Deficits IADL Deficits Identified Deficits Home Safety Awareness Awareness of Need for Assistance at Home Good Awareness Ability to Problem Solve Emergency Able to Problem Solve Situations Medication Management Medication Management No Deficits Identified Money Management Money Management No Deficits Identified Meal Preparation Meal Preparation Caregiver Provides Assist Meal Preparation Comments /daughter to assist until pt able Cloth Winding Supervisor Cloth Winding Supervisor Caregiver Provides Assist Cloth Winding Supervisor Comments /daughter to assist until pt able Driving Driving Caregiver Provides Assist Driving Comments /daughter to assist until pt able M6 OT- IP Functional Cognition Start: 10/01/18 16:28 Freq: Status: Active Protocol: Document 10/02/18 11:43 PJM (Rec: 10/02/18 16:06 [facility] [id number]) Cognitive Factors Limiting Selfcare Function Cognitive Ability Level of Alertness Alert Attention Span Ability Capable of Focused Attention Capable of Sustained Attention Ability to Follow Commands Able to Follow Multi-Step Commands Memory Description No Deficits Noted Safety Awareness No Deficits Noted Problem Solving Ability No deficits Noted Cognitive Comments Cognitive Assessment Comments Pt verbalizes and demonstrates understanding of 3/3 lumbar spine precautions. OT- Vision and Hearing OT- Hearing Assessment OT- Hearing Assessment WFL M7 OT- IP Mobility and Balance Start: 10/01/18 16:28 Freq: Status: Active Protocol: Document 10/02/18 11:43 PJM (Rec: 10/02/18 16:06 PJ [id number]) OT- Bed Mobility Assessment Rolling Type of Rolling Roll to Left Level of Assistance Standby Assistance Supine to Sit Supine to Sit Assist Standby Assistance Scooting Scooting to Edge of Bed Independent OT-Transfer Assessment Sit to and From Stand Sit to and from Stand Standby Assistance Transfers Transfer Ability Standby Assistance Technique Transfer Destination Chair Shower Stall Toilet Transfer Technique Stand Step Pivot Devices Transfer Assistive Devices Gait Belt Front Wheeled Walker OT- Gait Assessment Gait Gait Assistance Required: Standby Assistance Distance (Feet) 25 Assistive Devices Assistive Device Gait Belt Front Wheeled Walker Comments Gait Ability Comments No LOB noted this session with standing at sink for grooming and bathroom mobility/ transfers. OT- Balance Assessment Sitting Balance and Reactions Static Sitting Balance Ability Good Dynamic Sitting Balance Ability Good Standing Balance and Reactions Static Standing Balance Ability Good Dynamic Standing Balance Ability Good Comments Other Balance Tests/Deviations/Treatment during dressing and standing : shower M8 OT- IP Objective Assessments Start: 10/01/18 16:28 Freq: Status: Active Protocol: Document 10/02/18 11:43 PJM (Rec: 10/02/18 16:06 PJ [id number]) OT Gross Range of Motion Upper Extremity Range of Motion ROM Impairments B shoulder scaption limited to ~110-120 degrees and B elbow extension lacks about 20 degrees from full extension due to old injuries/surgeries. OT Strength Upper Extremity Strength Assessment Within Functional Limits Hand Repair [place] Strength Hand Dominance Right OT- Coordination Assessment Comments Coordination Comments BUE WFL OT-Muscle Tone Assessment Muscle Tone WNL Yes OT Sensation Assessment Comments Summary Comments WNL BUE Edema Edema Absent M9 OT- IP Assessment and Plan Start: 10/01/18 16:28 Freq: Status: Active Protocol: Document 10/02/18 11:43 PJM (Rec: 10/02/18 16:06 PJM [id number]) OT Summary Assessment and Plan Potential Rehabilitation Potential Good Analytic Complexity at Evaluation Low Summary OT Impairments Pain Progress Towards Goals Safe For Discharge Assessment Summary Low complexity OT assessment and all education completed today with pt/ re: lumbar spine precautions, body mechanics, adapted ADL techniques, lower body dressing equipment, bathroom safety equipment and car transfers. No further acute care OT services needed for this admission. Pt plans to d/c home tomorrow with 24 hr assist from supportive and daughter. Frequency of Treatment Frequency Of Treatment Discharge Discharge Recommendations OT Discharge Recommendations Home with Assistance
[2018-10-02 12:05] VITALS: BP 118/80; PULSE 81; RESP 16; TEMP 36.4; O2SAT 95
--- NOTE | 2018-10-02 13:00 | PT.IPTN ---
Current Diagnoses Other spondylosis with radiculopathy, lumbar region (09/30/18) Spinal stenosis, lumbar region with neurogenic claudication (09/30/18) Surgery Performed Operation Date: 09/30/18 07:45 Actual Procedures p L3-4,L4-5 TLIF, L3-S1 PSF w/Instru, L2-3 Hemilaminectomy - Bill Wadsworth MD Physical Therapy Treatment Note M2 PT-IP Current Condition Start: 09/30/18 17:05 Freq: NEEDED Status: Active Protocol: Document 10/01/18 10:33 AB (Rec: 10/01/18 13:04 AB [id number]) Physical Therapy Current Condition Current Condition Evaluation Date 10/01/18 Treatment Diagnosis s/p L3-S1 fusion/lami; difficulties in walking Onset Date 09/30/18 Precautions Lumbar Precautions Log Roll No Twisting Limit Bending Lifting Restriction of 10 lbs Gait Belt above Incisional Area M3 PT-IP Subjective Start: 09/30/18 17:05 Freq: NEEDED Status: Active Protocol: Document 10/02/18 13:00 GGD (Rec: 10/02/18 13:40 GGD [email or web address]) Subjective Physical Therapy Visit Type Type Treatment Note Visit Start Time 12:30 Visit Stop Time 13:00 Total Visit Minutes 30 Number of SALES ATTENDANT BUILDING MATERIALS Visits 3 Physical Therapy Visit Comments Patient Comments Pt states he is feeling better . M4 PT-IP Mobility and Gait Start: 09/30/18 17:05 Freq: NEEDED Status: Active Protocol: Document 10/02/18 13:00 GGD (Rec: 10/02/18 13:40 GGD [id number]) PT-Transfer Assessment Sit to and From Stand Sit to and from Stand Contact Guard Assistance 1 Person Assistance Use of Upper Extremities Equipment Transfer Assistive Device Gait Belt Front Wheeled Walker Orthotic/Prosthetic Devices or Brace: No Transfers Transfer Destination Chair Transfer Ability Level of Assist Contact Guard Assistance Use of Upper Extremities Gait Assessment Gait Gait Assistance Required: Contact Guard Assist 1 Person Assist Distance (Feet) 650 Able to Maintain Weight Bearing Status Yes During Gait Assistive Devices Assistive Device Gait Belt Front Wheeled Walker Orthotic/Prosthetic Devices or Brace: No Gait Deviations General Gait Pattern Antalgic Decreased Stride Length Decreased Feet Clearance Lateral Trunk Lean Stair Climbing Assessment Evaluation Level of Assist On Stairs Contact Guard Assistance Devices Stair Climbing Assistive Devices Right Railing Technique/Endurance Stair Climbing Direction Ascend and Descend Stair Climbing Technique Step to Step Number of Steps Climbed 3 Query Text: Stair Climbing Set # Repetitions (reps) 1 M5 PT-IP Objective Assessments Start: 09/30/18 17:05 Freq: NEEDED Status: Active Protocol: Document 10/01/18 10:33 AB (Rec: 10/01/18 13:04 AB [id number]) Orientation Orientation/Cognition Level of Alertness Alert Orientation Name Age Birthday Month Date Year Day of Week Place Situation Safety Awareness Decreased Safety Awareness Comments pt can be impulsive Gross Range of Motion Lower Extremity ROM Impairments bilateral hip flexors, knee extensors and PF tightness Strength Lower Extremity Strength Assessment Bilaterally Impaired Hip 3+/5 Knee 4-/5 Coordination Assessment Gross Coordination Gross Coordination WNL Muscle Tone Muscle Tone WNL Yes M6 PT-IP Treatment Start: 09/30/18 17:05 Freq: NEEDED Status: Active Protocol: Document 10/02/18 13:00 GGD (Rec: 10/02/18 13:40 GGD [id number]) Physical Therapy Treatment Education Education Provided Precautions M7 PT-IP Assessment and Plan Start: 09/30/18 17:05 Freq: NEEDED Status: Active Protocol: Document 10/02/18 13:00 GGD (Rec: 10/02/18 13:40 GGD [id number]) PT Summary Assessment and Plan Summary Assessment Summary Pt improving with mobility and pain control during gait. He was safe and stable with stair mobility. He safe for D/C home when medically stable. Frequency of Treatment Frequency Of Treatment Twice a Day Treatment Plan Physical Therapy Treatment Plan Bed Mobility Training Transfer Training Gait Training Therapeutic Exercise Balance Retraining Post Op Education Discharge Planning Hot or Cold Pack Neuromuscular Re-ed Coordination Retraining Manual Therapy Recommendations To Nursing Amount of Assist Needed 1 Person Assist Discharge Recommendations PT Discharge Recommendations Home with Assistance
[2018-10-02] MEDS: DEXAMETHASONE 4 MG TABLET PO ×2 (14:28→22:32)
[2018-10-02 15:40] VITALS: BP 104/75; PULSE 73; RESP 18; TEMP 37.1; O2SAT 97
[2018-10-02] MEDS: HYDROMORPHONE 2 MG TABLET PO ×2 (18:04→19:39)
[2018-10-02 19:54] VITALS: BP 106/69; PULSE 75; RESP 18; TEMP 37.2; O2SAT 96
[2018-10-02] MEDS: SODIUM CHLORIDE 0.9% FLUSH 10 ML IV (22:32)
[2018-10-03 00:35] VITALS: BP 112/59; PULSE 67; RESP 17; TEMP 36.7; O2SAT 98
[2018-10-03] MEDS: DEXAMETHASONE 4 MG TABLET PO (05:36)
[2018-10-03 05:40] VITALS: BP 119/69; PULSE 74; RESP 17; TEMP 36.7; O2SAT 95
--- NOTE | 2018-10-03 07:46 | P.DS_ITS ---
History of Present Illness Date Patient Seen: 10/03/18 Time Patient Seen: 07:30 Chief complaint: [id number] Lumbar Narrative: Patient was seen bedside s/p L3-4, L4-5 TLIF, L3-S1 PSF with instrumentation, L2-3 hemilaminectomy on 09/30/[address] Wadsworth at on 09/30/18. Patient's pain is much better controlled now that he has had a steroid burst. He is currently dressed and moving well. He would like to go home. He denies CP , SOB, calf pain, or numbness/tinling. Discharge Providers Date of admission: 09/30/18 05:32 Primary care physician: Viet Griffith MD Consults: 09/30/18 14:39 Consult to Occupational Therapy Evaluate & Treat Comment: Physician Instructions: Evaluate and treat Consult to Physical Therapy Evaluate & Treat Comment: Physician Instructions: Evaluate and Treat Discharge provider: Rossy Chambers PA-C Discharge Date: 10/03/18 Summary Discharge Diagnosis: 1. Spinal stenosis of lumbar region with neurogenic claudication 2. Spondylolisthesis at L4-L5 level. Hospital Course: Patient was admitted to the hospital on 09/30/18 s/p L3-4, L4-5 TLIF, L3-S1 PSF with instrumentation, L2-[address] Wadsworth. Patient tolerated the procedure well no major complications. Patient was transitioned to the acute care floor and placed on the standard lumbar fusion pathway and protocol. He had some pain control issues post-operatively, which resolved with a steroid burst on 10/02/18. He was stable and ready for discharge on 10/03/18. Status at Discharge Cognitive/behavioral status at discharge: Alert & oriented x3 Functional status at discharge: uses cane/walker Overall status at discharge: patient is progressing back to baseline Time Spent with Patient Less than 30 minutes Exam Vital Signs (past 8 hours): - 10/03/18 00:35 10/03/18 05:40 Temperature 98.0 F 98.1 F Pulse Rate 67 74 Respiratory Rate 17 17 Blood Pressure 112/59 L 119/69 Pulse Oximetry 98 95 Oxygen Delivery Method Room Air Oxygen Flow Rate 0 Narrative Exam Narrative: WDWN NAD A&Ox3. Dressing on lumbar spine is CDI, no signs of erythema or drainage. Minimal generalized swelling. No focal deficits noted BLE and he is NVI in these extremities. Objective Labs Result Diagrams: 10/01/18 04:47 Discharge Plan Discharge Plan Patient Disposition: Home Discharge Med Rec/Prescriptions Prescriptions: New acetaminophen 325 mg Tablet 650 mg PO Q6HR PRN (Reason: Pain, Mild (1-3)) Qty: 0 RF: 0 hydromorphone 2 mg Tablet 2 mg PO Q4HR PRN (Reason: pain) Qty: 40 RF: 0 docusate sodium 100 mg Capsule 100 mg PO BID Qty: 0 RF: 0 hydroxyzine pamoate 25 mg Capsule 25 mg PO Q4HR PRN (Reason: muscle spasms) 50 Days RF: 0 Continue cyclobenzaprine 10 mg Tablet 10 mg PO BID PRN (Reason: Muscle Spasm) RF: 0 Discontinued methocarbamol 500 mg Tablet 1 - 2 tab PO BEDTIME PRN (Reason: Muscle Spasm) RF: 0 naproxen sodium [Aleve] 220 mg Capsule 220 mg PO DAILY PRN (Reason: pain) RF: 0 Follow up/Referrals: Viet Griffith MD [Primary Care Provider] - Bill Wadsworth MD [Physician] - (Follow up at previously scheduled post-op appointment.) Provider Discharge Instructions Diet: Diet as Tolerated Activity: Weight bearing as tolerated. No bending, lifting greater than 5 lbs or twisting Cold/Heat Therapy: Apply ice to surgical site 20 minutes at a time as needed for pain/swelling Skin/Wound/Dressing Care Report to your healthcare provider any signs of infection, such as:: chills, fever, night sweats, increased pain, unusual drainage and unusual redness Dressing: Keep dressing clean, dry, and intact. May shower with it in place but no soaking. Visit Report/Discharge Packet Instructions: DI for Transforaminal Lumbar Interbody Fusion Visit Report Forms: Stroke Signs & Symptoms Discharge Data Primary Care Provider: Viet Griffith Attending Provider: Bill Wadsworth Admit Date/Time: 09/30/18 05:32 Discharges patient from system. Discharge Date/Time: 10/03/18 09:40 Quality VTE Deep Vein Thrombosis/Pulmonary Embolism Present on Admission: No
[2018-10-03 08:00] VITALS: BP 100/69; PULSE 77; RESP 16; TEMP 36.7; O2SAT 94
--- NOTE | 2018-10-03 09:45 | CM.DPC ---
DCP Discharge Home Per Ortho PA, pt medically stable to d/c home today. Per PT, recommending safe d/c home with assist when stable. Per RN, no concerns at this time. Plan: Patient to d/c home via spouse POV today and spouse available to assist. ELDER Brown
== END 2018-10-03 09:40 | disposition home or self-care (01) | DRG 454 ==
PROVIDERS: Admitting Provider Orthopaedic Surgery Orthopaedic Surgery of the Spine; PCP Internal Medicine; Visit Provider Orthopaedic Surgery Orthopaedic Surgery of the Spine
PROC: 0SG10AJ Fusion of 2 or more Lumbar Vertebral Joints with Interbody Fusion Device, Posterior Approach, Anterior Column, Open Approach (ICD-10-PCS; principal; 2018-09-30 07:45)
DX: M48.062 Spinal stenosis, lumbar region with neurogenic claudication (principal); M96.0 Pseudarthrosis after fusion or arthrodesis; M47.26 Other spondylosis with radiculopathy, lumbar region; M48.07 Spinal stenosis, lumbosacral region; M47.27 Other spondylosis with radiculopathy, lumbosacral region; M43.16 Spondylolisthesis, lumbar region; M54.9 Dorsalgia, unspecified
CPT/HCPCS: 36415; 72100; 76000; 85014; 85018; 94760; 97116; 97162; 97165; 97530; 97535; C1776; C9290; J0131; J0330; J0690; J1100; J1170; J1885; J2060; J2250; J2405; J2704; J3010; J3410

== ENCOUNTER 2019-02-12 17:59 | Emergency (ER) | payer OTHER, SELFPAY ==
[2018-09-30 16:00] VITALS: BMI 26.6
[2019-02-12 18:02] VITALS: BP 140/76; PULSE 61; RESP 14; TEMP 36.8; O2SAT 97; BMI 25.7
--- NOTE | 2019-02-12 18:21 | DI.RAD.S_ITS ---
PROCEDURE: XR LUMBAR SPINE 2-3V INDICATIONS: back pain sp surg TECHNIQUE: 3 views of the lumbar spine were acquired. COMPARISON: [facility], CR, XR LUMBAR SPINE 2-3V, 09/30/2018, 8:17. FINDINGS: Bones: 5 [id number] vertebrae are present. Posterior lateral layo and pedicle screw fixation of L3-S1 is again noted. Interbody fusion material is present at L3-L4 through L5-S1. There is no radiographic evidence of hardware failure or loosening. There is normal bony alignment. No vertebral body compression fractures. No suspicious bony lesions. Soft tissues: Overlying bowel gas pattern is normal. No suspicious soft tissue calcifications. IMPRESSION: Expected appearance post ORIF from L3-S1. Dictated by: Abilio Rutledge M.D. on 02/12/2019 at 18:52 Approved by: Abilio Rutledge M.D. on 02/12/2019 at 18:53
[2019-02-12] MEDS: KETOROLAC 60 MG/2 ML VIAL IM (18:40)
[2019-02-12] MEDS: CYCLOBENZAPRINE 10 MG TABLET PO (18:40)
--- NOTE | 2019-02-12 19:11 | ED.BACK ---
HPI - Back Pain/Injury <ANGELA Chavez-BC - Last Filed: 02/12/19 19:53> General Chief Complaint: Back Pain/Injury Stated Complaint: back pain Time Seen by Provider: 02/12/19 18:08 Source: patient and family Mode of arrival: ambulatory Limitations: no limitations History of Present Illness HPI Narrative: The is a 58-year-old male with history of lumbar fusion who presents with a chief complaint of back pain. He states he had a lumbar fusion on 09/[address] Wadsworth. He states he has been going through physical therapy and everything has been going well. He states he bent over to tie his shoes today, and felt immediate pain in his lumbar back. He states this happened at 9:30 a.m. in the morning. Denies any numbness or tingling. States the pain does radiate down his left leg a bit. He denies any incontinence of bowel, incontinence of bladder numbness or saddle anesthesia. He took indomethacin this morning for pain and has applied ice. He has not taken anything else at home. He denies any weakness. Related Data Home Medications Medication Instructions Recorded Confirmed cyclobenzaprine 10 mg PO BID PRN 09/18/18 09/30/18 Previous Rx's Medication Instructions Recorded acetaminophen 650 mg PO Q6HR PRN #0 tab 10/03/18 docusate sodium 100 mg PO BID #0 cap 10/03/18 hydromorphone 2 mg PO Q4HR PRN #40 tab 10/03/18 cyclobenzaprine 10 mg PO TID PRN #30 tab 02/12/19 hydrocodone-acetaminophen [Mays] 1 tab PO Q4-6H PRN #7 tab 02/12/19 ketorolac 10 mg PO TID PRN #8 tab 02/12/19 Allergies Allergy/AdvReac Type Severity Reaction Status Date / Time prochlorperazine AdvReac Mild I can't Verified 02/12/19 18:06 [From Compazine] sit still Review of Systems <MIGDALIA Chavez - Last Filed: 02/12/19 19:53> Review of Systems GENERAL: Denies chills, fatigue, malaise, fever, sweats. HEENT: Denies sinus pain, ear pain, sore throat, difficulty swallowing, dizziness. RESPIRATORY: Denies dyspnea, cough, wheezing, hemoptysis, sputum. CARDIOVASCULAR: Denies chest pain, palpitations, orthopnea, edema, GASTROINTESTINAL: Denies nausea, vomiting, abdominal pain, diarrhea, constipation, melena. : Denies dysuria, frequency, incontinence, hematuria, urinary retention. MUSCULOSKELETAL: See HPI SKIN: Denies rash, skin lesions, or other NEUROLOGIC: Denies weakness, headache, numbness, change in speech, confusion, seizures, incoordination. PSYCHIATRIC: No concerning psychosocial issues. 12 point review of systems is negative except for those stated above PFSH <MIGDALIA Chavez - Last Filed: 02/12/19 19:53> Medical History Chronic back pain (Acute) Constipation (Acute) Ganglion cyst (Acute) Melanoma in situ of back (Acute ~2014) Neck pain (Acute) Normal colonoscopy (Acute 09/03/07) Pneumonia (Acute) Sciatica (Acute) Surgical History History of arthroscopy of both shoulders (Acute) Hx of elbow surgery (Acute) Hx of eye surgery (Acute) Hx of hemorrhoidectomy (Acute 09/03/14) Hx of lumbar discectomy (Acute ~2009) Hx of tonsillectomy (Acute) S/P cervical spinal fusion (Acute ~1988) S/P cervical spinal fusion (Acute ~2006) Social History household members: spouse and children Smoking Status: Never smoker alcohol intake: current Social History household members: spouse and children Smoking Status: Never smoker alcohol intake: current Exam <MIGDALIA Chavez - Last Filed: 02/12/19 19:53> Narrative Exam Narrative: GENERAL: This is a well-nourished, well-developed patient, appears uncomfortable. HEAD: Atraumatic. Normocephalic. No temporal or scalp tenderness. EYES: Pupils equal round and reactive. Extraocular motions intact. No scleral icterus. No injection or drainage. ENT: Nose without bleeding, purulent drainage or septal hematoma. Throat without erythema, tonsillar hypertrophy or exudate. Uvula midline. Airway patent. NECK: Trachea midline. No JVD or lymphadenopathy. Supple, nontender, no meningeal signs. CARDIOVASCULAR: Regular rate and rhythm without murmurs, gallops, or rubs. RESPIRATORY: Clear to auscultation. Breath sounds equal bilaterally. No wheezes, rales, or rhonchi. GASTROINTESTINAL: Abdomen soft, non-tender, nondistended. No hepato-splenomegaly, or palpable masses. No guarding. EXTREMITIES: No clubbing, cyanosis, or edema. No joint tenderness, effusion, or edema noted. BACK: No pain to palpation of C-spine or T-spine. Pain to palpation of the L-spine. NEURO: AOx3. Strength is equal upper and lower extremities bilaterally. SKIN: No rash or erythema. No erythema, rash abrasion or laceration noted lumbar spine. Postoperative scars in place. Initial Vital Signs Initial Vital Signs: Vital Signs Temperature 98.2 F 02/12/19 18:02 Pulse Rate 61 02/12/19 18:02 Respiratory Rate 14 02/12/19 18:02 Blood Pressure 140/76 02/12/19 18:02 Pulse Oximetry 97 02/12/19 18:02 <Rey Bello DO - Last Filed: 02/13/19 00:14> Initial Vital Signs Initial Vital Signs: Vital Signs Temperature 98.2 F 02/12/19 18:02 Pulse Rate 61 02/12/19 18:02 Respiratory Rate 14 02/12/19 18:02 Blood Pressure 140/76 02/12/19 18:02 Pulse Oximetry 97 02/12/19 18:02 Course <MIGDALIA Chavez - Last Filed: 02/12/19 19:53> Orders Ordered: ED Orders 02/12/19 18:21 XR lumbar spine 2-3V Stat Discontinued Medications Hydrocodone Bitart/Acetaminophen (Mays 5/325) 2 tab PO NOW ONE Stop: 02/12/19 19:19 Last Admin: 02/12/19 19:23 Dose: 2 tab Cyclobenzaprine HCl (Flexeril) 10 mg PO NOW ONE Stop: 02/12/19 18:22 Last Admin: 02/12/19 18:40 Dose: 10 mg Ketorolac Tromethamine (Toradol) 60 mg IM NOW ONE Stop: 02/12/19 18:22 Last Admin: 02/12/19 18:40 Dose: 60 mg Vital Signs - 8 hr 02/12/19 18:02 02/12/19 19:56 Temperature 98.2 F Pulse Rate 61 52 L Respiratory Rate 14 Blood Pressure 140/76 122/88 Pulse Oximetry 97 94 <Rey Bello DO - Last Filed: 02/13/19 00:14> Orders Ordered: ED Orders 02/12/19 18:21 XR lumbar spine 2-3V Stat Discontinued Medications Hydrocodone Bitart/Acetaminophen (Mays 5/325) 2 tab PO NOW ONE Stop: 02/12/19 19:19 Last Admin: 02/12/19 19:23 Dose: 2 tab Cyclobenzaprine HCl (Flexeril) 10 mg PO NOW ONE Stop: 02/12/19 18:22 Last Admin: 02/12/19 18:40 Dose: 10 mg Ketorolac Tromethamine (Toradol) 60 mg IM NOW ONE Stop: 02/12/19 18:22 Last Admin: 02/12/19 18:40 Dose: 60 mg Vital Signs - 8 hr 02/12/19 18:02 02/12/19 19:56 Temperature 98.2 F Pulse Rate 61 52 L Respiratory Rate 14 Blood Pressure 140/76 122/88 Pulse Oximetry 97 94 MDM - Back Pain/Injury <MIGDALIA Chavez - Last Filed: 02/12/19 19:53> Imaging Data Lumbar spine x-ray: Radiologist's impression: [address] [address] XRay Report Signed Patient: Ranjit Bishop [facility]#: [id number] : 8Acct:[id number] Age/Sex: 58 / MDate of Service: 02/12/19 Loc: ED Accession Number: [id number] Procedure: XR lumbar spine 2-3V Ordering Provider: Tea Vicente PROCEDURE: XR LUMBAR SPINE 2-3V INDICATIONS: back pain sp surg TECHNIQUE: 3 views of the lumbar spine were acquired. COMPARISON: [facility], , XR LUMBAR SPINE 2-3V, 09/30/2018, 8:17. FINDINGS: Bones: 5 [id number] vertebrae are present. Posterior lateral layo and pedicle screw fixation of L3-S1 is again noted. Interbody fusion material is present at L3-L4 through L5-S1. There is no radiographic evidence of hardware failure or loosening. There is normal bony alignment. No vertebral body compression fractures. No suspicious bony lesions. Soft tissues: Overlying bowel gas pattern is normal. No suspicious soft tissue calcifications. IMPRESSION: Expected appearance post ORIF from L3-S1. Dictated by: Abilio Rutledge M.D. on 02/12/2019 at 18:52 Approved by: Abilio Rutledge M.D. on 02/12/2019 at 18:53 [facility] Narrative Medical decision making narrative: The patient is a 58-year-old male who presents with a chief complaint of lower back pain. He has just had surgery for a had a spinal fusion. He has no acute findings on his x-ray. He was given Toradol, Flexeril and Mays in the emergency department. He has no acute findings of incontinence or numbness. Discussed at length following up with Orthopedics as scheduled on Sunday. Discussed return precautions of incontinence, saddle anesthesia etc. Patient states understanding. Patient has no questions or concerns upon discharge. Discharge Plan Departure Patient Disposition: Home Clinical Impression: Lumbar back pain Discharge Date/Time: 02/12/19 19:57 Interventions: ED Discharge Assessment Last Done: 02/12/19 19:56 Instructions: DI for Low Back Pain Activity Restrictions/Additional Instructions: Please follow-up with your PCP as well as [facility] as scheduled on Sunday. I have given you prescriptions for pain medications. Do not combine the Toradol with any other anti-inflammatories. The Flexeril and Mays can make you drowsy. The Mays can be constipating. Please push fluids or take a laxative if needed. Your x-ray today does not show any acute findings. Please come back to the emergency department for any acute concerns such as incontinence of bowel, incontinence of bladder or saddle anesthesia as we discussed. Prescriptions: New cyclobenzaprine 10 mg tablet 10 mg PO TID PRN (Reason: muscle spasm) Qty: 30 RF: 0 hydrocodone-acetaminophen [Mays] 5-325 mg tablet 1 tab PO Q4-6H PRN (Reason: pain) Qty: 7 RF: 0 ketorolac 10 mg tablet 10 mg PO TID PRN (Reason: pain) Qty: 8 RF: 0 No Action cyclobenzaprine 10 mg Tablet 10 mg PO BID PRN (Reason: Muscle Spasm) RF: 0 acetaminophen 325 mg Tablet 650 mg PO Q6HR PRN (Reason: Pain, Mild (1-3)) Qty: 0 RF: 0 hydromorphone 2 mg Tablet 2 mg PO Q4HR PRN (Reason: pain) Qty: 40 RF: 0 docusate sodium 100 mg Capsule 100 mg PO BID Qty: 0 RF: 0 Referrals: Viet Griffith MD [Primary Care Provider] - <Rey Bello DO - Last Filed: 02/13/19 00:14> Cosign ED Attending Coschristieature Attestation: I was immediately available in the department for consultation. Documentation has been reviewed. I agree with assessment and plan.
--- NOTE | 2019-02-12 19:14 | ED_ITS ---
HPI - Back Pain/Injury <ANGELA Chavez-BC - Last Filed: 02/12/19 19:53> General Chief Complaint: Back Pain/Injury Stated Complaint: back pain Time Seen by Provider: 02/12/19 18:08 Source: patient and family Mode of arrival: ambulatory Limitations: no limitations History of Present Illness HPI Narrative: The is a 58-year-old male with history of lumbar fusion who presents with a chief complaint of back pain. He states he had a lumbar fusion on 09/[address] Wadsworth. He states he has been going through physical therapy and everything has been going well. He states he bent over to tie his shoes today, and felt immediate pain in his lumbar back. He states this happened at 9:30 a.m. in the morning. Denies any numbness or tingling. States the pain does radiate down his left leg a bit. He denies any incontinence of bowel, incontinence of bladder numbness or saddle anesthesia. He took indomethacin this morning for pain and has applied ice. He has not taken anything else at [facility]. He denies any weakness. Related Data Home Medications Medication Instructions Recorded Confirmed cyclobenzaprine 10 mg PO BID PRN 09/18/18 09/30/18 Previous Rx's Medication Instructions Recorded acetaminophen 650 mg PO Q6HR PRN #0 tab 10/03/18 docusate sodium 100 mg PO BID #0 cap 10/03/18 hydromorphone 2 mg PO Q4HR PRN #40 tab 10/03/18 cyclobenzaprine 10 mg PO TID PRN #30 tab 02/12/19 hydrocodone-acetaminophen [Premier] 1 tab PO Q4-6H PRN #7 tab 02/12/19 ketorolac 10 mg PO TID PRN #8 tab 02/12/19 Allergies Allergy/AdvReac Type Severity Reaction Status Date / Time prochlorperazine AdvReac Mild I can't Verified 02/12/19 18:06 [From Compazine] sit still Review of Systems <MIGDALIA Chavez - Last Filed: 02/12/19 19:53> Review of Systems GENERAL: Denies chills, fatigue, malaise, fever, sweats. HEENT: Denies sinus pain, ear pain, sore throat, difficulty swallowing, dizziness. RESPIRATORY: Denies dyspnea, cough, wheezing, hemoptysis, sputum. CARDIOVASCULAR: Denies chest pain, palpitations, orthopnea, edema, GASTROINTESTINAL: Denies nausea, vomiting, abdominal pain, diarrhea, constipation, melena. : Denies dysuria, frequency, incontinence, hematuria, urinary retention. MUSCULOSKELETAL: See HPI SKIN: Denies rash, skin lesions, or other NEUROLOGIC: Denies weakness, headache, numbness, change in speech, confusion, seizures, incoordination. PSYCHIATRIC: No concerning psychosocial issues. 12 point review of systems is negative except for those stated above PFSH <MIGDALIA Chavez - Last Filed: 02/12/19 19:53> Medical History Chronic back pain (Acute) Constipation (Acute) Ganglion cyst (Acute) Melanoma in situ of back (Acute ~2014) Neck pain (Acute) Normal colonoscopy (Acute 09/03/07) Pneumonia (Acute) Sciatica (Acute) Surgical History History of arthroscopy of both shoulders (Acute) Hx of elbow surgery (Acute) Hx of eye surgery (Acute) Hx of hemorrhoidectomy (Acute 09/03/14) Hx of lumbar discectomy (Acute ~2009) Hx of tonsillectomy (Acute) S/P cervical spinal fusion (Acute ~1988) S/P cervical spinal fusion (Acute ~2006) Social History household members: spouse and children Smoking Status: Never smoker alcohol intake: current Social History household members: spouse and children Smoking Status: Never smoker alcohol intake: current Exam <MIGDALIA Chavez - Last Filed: 02/12/19 19:53> Narrative Exam Narrative: GENERAL: This is a well-nourished, well-developed patient, appears uncomfortable. HEAD: Atraumatic. Normocephalic. No temporal or scalp tenderness. EYES: Pupils equal round and reactive. Extraocular motions intact. No scleral icterus. No injection or drainage. ENT: Nose without bleeding, purulent drainage or septal hematoma. Throat without erythema, tonsillar hypertrophy or exudate. Uvula midline. Airway patent. NECK: Trachea midline. No JVD or lymphadenopathy. Supple, nontender, no meni ngeal signs. CARDIOVASCULAR: Regular rate and rhythm without murmurs, gallops, or rubs. RESPIRATORY: Clear to auscultation. Breath sounds equal bilaterally. No wheezes, rales, or rhonchi. GASTROINTESTINAL: Abdomen soft, non-tender, nondistended. No hepato- splenomegaly, or palpable masses. No guarding. EXTREMITIES: No clubbing, cyanosis, or edema. No joint tenderness, effusion, or edema noted. BACK: No pain to palpation of C-spine or T-spine. Pain to palpation of the L- spine. NEURO: AOx3. Strength is equal upper and lower extremities bilaterally. SKIN: No rash or erythema. No erythema, rash abrasion or laceration noted lumbar spine. Postoperative scars in place. Initial Vital Signs Initial Vital Signs: Vital Signs Temperature 98.2 F 02/12/19 18:02 Pulse Rate 61 02/12/19 18:02 Respiratory Rate 14 02/12/19 18:02 Blood Pressure 140/76 02/12/19 18:02 Pulse Oximetry 97 02/12/19 18:02 <Rey Bello DO - Last Filed: 02/13/19 00:14> Initial Vital Signs Initial Vital Signs: Vital Signs Temperature 98.2 F 02/12/19 18:02 Pulse Rate 61 02/12/19 18:02 Respiratory Rate 14 02/12/19 18:02 Blood Pressure 140/76 02/12/19 18:02 Pulse Oximetry 97 02/12/19 18:02 Course <MIGDALIA Chavez - Last Filed: 02/12/19 19:53> Orders Ordered: ED Orders 02/12/19 18:21 XR lumbar spine 2-3V Stat Discontinued Medications Hydrocodone Bitart/Acetaminophen (Premier 5/325) 2 tab PO NOW ONE Stop: 02/12/19 19:19 Last Admin: 02/12/19 19:23 Dose: 2 tab Cyclobenzaprine HCl (Flexeril) 10 mg PO NOW ONE Stop: 02/12/19 18:22 Last Admin: 02/12/19 18:40 Dose: 10 mg Ketorolac Tromethamine (Toradol) 60 mg IM NOW ONE Stop: 02/12/19 18:22 Last Admin: 02/12/19 18:40 Dose: 60 mg Vital Signs - 8 hr 02/12/19 18:02 02/12/19 19:56 Temperature 98.2 F Pulse Rate 61 52 L Respiratory Rate 14 Blood Pressure 140/76 122/88 Pulse Oximetry 97 94 <Rey Bello DO - Last Filed: 02/13/19 00:14> Orders Ordered: ED Orders 02/12/19 18:21 XR lumbar spine 2-3V Stat Discontinued Medications Hydrocodone Bitart/Acetaminophen (Premier 5/325) 2 tab PO NOW ONE Stop: 02/12/19 19:19 Last Admin: 02/12/19 19:23 Dose: 2 tab Cyclobenzaprine HCl (Flexeril) 10 mg PO NOW ONE Stop: 02/12/19 18:22 Last Admin: 02/12/19 18:40 Dose: 10 mg Ketorolac Tromethamine (Toradol) 60 mg IM NOW ONE Stop: 02/12/19 18:22 Last Admin: 02/12/19 18:40 Dose: 60 mg Vital Signs - 8 hr 02/12/19 18:02 02/12/19 19:56 Temperature 98.2 F Pulse Rate 61 52 L Respiratory Rate 14 Blood Pressure 140/76 122/88 Pulse Oximetry 97 94 MDM - Back Pain/Injury <MIGDALIA Chavez - Last Filed: 02/12/19 19:53> Imaging Data Lumbar spine x-ray: Radiologist's impression: [address] [address] XRay Report Signed Patient: Ranjit Bishop [facility]#: [id number] : 8Acct:[id number] Age/Sex: 58 / MDate of Service: 02/12/19 Loc: ED Accession Number: [id number] Procedure: XR lumbar spine 2-3V Ordering Provider: Tea Vicente PROCEDURE: XR LUMBAR SPINE 2-3V INDICATIONS: back pain sp surg TECHNIQUE: 3 views of the lumbar spine were acquired. COMPARISON: [facility], , XR LUMBAR SPINE 2-3V, 09/30/2018, 8:17. FINDINGS: Bones: 5 [id number] vertebrae are present. Posterior lateral layo and pedicle screw fixation of L3-S1 is again noted. Interbody fusion material is present at L3-L4 through L5-S1. There is no radiographic evidence of hardware failure or loosening. There is normal bony alignment. No vertebral body compression fractures. No suspicious bony lesions. Soft tissues: Overlying bowel gas pattern is normal. No suspicious soft tissue calcifications. IMPRESSION: Expected appearance post ORIF from L3-S1. Dictated by: Abilio Rutledge M.D. on 02/12/2019 at 18:52 Approved by: Abilio Rutledge M.D. on 02/12/2019 at 18:[address] [facility] Narrative Medical decision making narrative: The patient is a 58-year-old male who presents with a chief complaint of lower back pain. He has just had surgery for a had a spinal fusion. He has no acute findings on his x-ray. He was given Toradol, Flexeril and Premier in the emergency department. He has no acute findings of incontinence or numbness. Discussed at length following up with Orthopedics as scheduled on Sunday. Discussed return precautions of incontinence, saddle anesthesia etc. Patient states understanding. Patient has no questions or concerns upon discharge. Discharge Plan Departure Patient Disposition: Home Clinical Impression: Lumbar back pain Discharge Date/Time: 02/12/19 19:57 Interventions: ED Discharge Assessment Last Done: 02/12/19 19:56 Instructions: DI for Low Back Pain Activity Restrictions/Additional Instructions: Please follow-up with your PCP as well as [facility] as scheduled on Sunday. I have given you prescriptions for pain medications. Do not combine the Toradol with any other anti-inflammatories. The Flexeril and Premier can make you drowsy. The Premier can be constipating. Please push fluids or take a laxative if needed. Your x-ray today does not show any acute findings. Please come back to the emergency department for any acute concerns such as incontinence of bowel, incontinence of bladder or saddle anesthesia as we discussed. Prescriptions: New cyclobenzaprine 10 mg tablet 10 mg PO TID PRN (Reason: muscle spasm) Qty: 30 RF: 0 hydrocodone-acetaminophen [Premier] 5-325 mg tablet 1 tab PO Q4-6H PRN (Reason: pain) Qty: 7 RF: 0 ketorolac 10 mg tablet 10 mg PO TID PRN (Reason: pain) Qty: 8 RF: 0 No Action cyclobenzaprine 10 mg Tablet 10 mg PO BID PRN (Reason: Muscle Spasm) RF: 0 acetaminophen 325 mg Tablet 650 mg PO Q6HR PRN (Reason: Pain, Mild (1-3)) Qty: 0 RF: 0 hydromorphone 2 mg Tablet 2 mg PO Q4HR PRN (Reason: pain) Qty: 40 RF: 0 docusate sodium 100 mg Capsule 100 mg PO BID Qty: 0 RF: 0 Referrals: Viet Griffith MD [Primary Care Provider] - <Rey Bello DO - Last Filed: 02/13/19 00:14> Cosign ED Attending Jaydenature Attestation: I was immediately available in the department for consultation. Documentation has been reviewed. I agree with assessment and plan.
[2019-02-12] MEDS: HYDROCODONE/ACET 5/325 TABLET 2 TAB PO (19:23)
[2019-02-12 19:56] VITALS: BP 122/88; PULSE 52; O2SAT 94
== END 2019-02-12 19:57 | disposition home or self-care (01) ==
PROVIDERS: Emergency Provider Nurse Practitioner Family; PCP Internal Medicine
DX: M54.5 Low back pain (principal)
CPT/HCPCS: 72100; 96372; 99282; 99283; J1885

== ENCOUNTER → 2019-03-04 11:32 | Outpatient (CLI) | payer OTHER, SELFPAY ==
[2018-09-30 16:00] VITALS: BMI 26.6
--- NOTE | 2019-03-04 | DI.CT.S_ITS ---
PROCEDURE: CT LUMBAR SPINE WO CON INDICATIONS: Low back pain TECHNIQUE: Noncontrast 3 mm thick sections acquired from the T12 level to the sacrum. Sagittal and coronal reformats were constructed. For radiation dose reduction, the following was used: automated exposure control. COMPARISON: None. FINDINGS: Image quality: Excellent. Bones: No fracture or focal osseous destruction. Multilevel degenerative endplate sclerosis and spurring. Diffuse facet arthropathy. Straightening of the normal lordotic curvature. Diffuse moderate narrowing of the lower thoracic disc spaces with multilevel vacuum disc phenomenon. Posterior spinal fixation with paraspinal rods and pedicle screws from the level of L3-S1. The hardware appears grossly intact and there is expected postoperative alignment. Interbody cage grass present at L3-L4, L4-L5 and L5-S1. There is partial osseous fusion of the L5-S1 vertebral bodies. T12-L1: No bony canal or left foraminal stenosis. Mild right bony foraminal narrowing L1-L2: Mild canal narrowing. Mild left bony foraminal stenosis. No right bony foraminal narrowing L2-L3: No bony canal stenosis. Mild right bony foraminal narrowing. No left bony foraminal stenosis L3-L4: No bony canal stenosis. No definite bony foraminal narrowing L4-L5: No bony canal stenosis. Moderate right and no definite left bony foraminal narrowing L5-S1: No bony canal or foraminal stenoses Soft tissues: No retroperitoneal masses or hematomas. A presumed small right renal hilar vascular calcification. Nonspecific right adrenal calcification. Visualized aorta is normal in caliber. IMPRESSION: Postsurgical changes from L3-S1 as above. Expected postoperative alignment. Moderate right L4-L5 bony foraminal narrowing. Elsewhere, no high-grade bony canal or foraminal stenosis. Dictated by: Leroy Mclaughlin M.D. on 03/04/2019 at 15:22 Approved by: Leroy Mclaughlin M.D. on 03/04/2019 at 15:30
== END ==
PROVIDERS: PCP Internal Medicine; Visit Provider Orthopaedic Surgery Orthopaedic Surgery of the Spine
DX: M54.5 Low back pain (principal); M48.061 Spinal stenosis, lumbar region without neurogenic claudication; Z98.1 Arthrodesis status
CPT/HCPCS: 72131